=== PATIENT | female | born 1965 | race Caucasian/White ===

== ENCOUNTER → 2016-03-21 | Outpatient (CLI) | payer OTHER ==
[~2016-03-21] MED LIST: HYDR-5688 PO; TERI600S SQ
--- NOTE | 2016-03-21 16:33 | MAMMOGRAPHY REPORT ---
BILATERAL DIGITAL SCREENING MAMMOGRAM TOMOSYNTHESIS WITH CAD: 03/21/2016 CLINICAL HISTORY: Routine screening. Patient has no complaints. TECHNIQUE: Breast tomosynthesis in addition to standard 2D mammography was performed. Current study was also evaluated with a Computer Aided Detection (CAD) system. COMPARISON: Comparison is made to exams dated: 03/18/2015 mammogram, 03/17/2014 mammogram, 3 mammogram, 02/20/2012 mammogram, 02/17/2011 mammogram, and 02/16/2010 mammogram - [facility] [address] BREAST COMPOSITION: The tissue of both breasts is almost entirely fatty. FINDINGS: No suspicious mass, architectural distortion or cluster of microcalcifications is seen. IMPRESSION: ACR BI-RADS CATEGORY 1: NEGATIVE There is no mammographic evidence of malignancy. A 1 year screening mammogram is recommended. The p atient will receive written notification of the results. Approximately 10% of breast cancers are not detected with mammography. A negative mammographic repor t should not delay biopsy if a clinically suggestive mass is present. Amira leary/michelle:03/21/2016 15:59:45 Manager [place]: Kalyani AVILEZ(R)(M), [facility] letter sent: Normal 1/2 BI-RADS Code: ACR BI-RADS Category 1: Negative
== END | disposition home or self-care (01) ==
LOC: C.MAMM 07:13
PROVIDERS: ATTEND Internal Medicine
DX: Z12.31 Encounter for screening mammogram for malignant neoplasm of breast (principal)

== ENCOUNTER → 2016-05-08 | Outpatient (CLI) | payer OTHER ==
[2016-05-08 09:33] LABS: BASO % 0.4 %; BASO ABS # 0.03 K/uL (0-0.2); COMPLETE YES; EOS % 1.6 %; HEMATOCRIT 36.8 % (37-47); IG% 0.1 %; LYMPH % 23.5 %; LYMPH ABS # 1.59 K/uL (1.2-3.4); MEAN CELL VOLUME 86.8 fL (80-100); MEAN CORPUSCULAR HEMOGLOBIN 28.8 pg (25-34); MEAN CORPUSCULAR HGB CONC 33.2 g/dl (32-36); MEAN PLATELET VOLUME 10.1 fL (7.4-10.4); MONO % 3.8 %; NEUT % 70.6 %; PLATELET COUNT 258 K/uL (130-400); RED BLOOD COUNT 4.24 M/uL (4.2-5.4); WHITE BLOOD COUNT 6.77 K/uL (4.8-10.8)
[2016-05-08 10:09] LABS: BLOOD UREA NITROGEN 12 mg/dl (7-18); BUN/CREATININE RATIO 18.3 (10-20); CALCIUM 9.9 mg/dl (8.5-10.1); CARBON DIOXIDE 30 mmol/L (21-32); CHLORIDE 103 mmol/L (98-107); CREATININE 0.65 mg/dl (0.60-1.20); GLUCOSE 89 mg/dl (70-99); POTASSIUM 3.3 mmol/L (3.5-5.1); SODIUM 142 mmol/L (136-145)
== END | disposition home or self-care (01) ==
LOC: C.LAB1850 08:27
PROVIDERS: ATTEND Internal Medicine
DX: D64.9 Anemia, unspecified (principal); E55.9 Vitamin D deficiency, unspecified

== ENCOUNTER → 2016-05-18 | Outpatient (CLI) | payer OTHER ==
[2016-05-18 11:57] LABS: BLOOD UREA NITROGEN 16 mg/dl (7-18); BUN/CREATININE RATIO 25.5 (10-20); CALCIUM 10.5 mg/dl (8.5-10.1); CARBON DIOXIDE 29 mmol/L (21-32); CHLORIDE 104 mmol/L (98-107); CREATININE 0.64 mg/dl (0.60-1.20); GLUCOSE 85 mg/dl (70-99); MAGNESIUM 2.2 mg/dl (1.8-2.4); SODIUM 142 mmol/L (136-145)
== END | disposition home or self-care (01) ==
LOC: C.LAB1850 10:30
PROVIDERS: ATTEND Internal Medicine
DX: E87.6 Hypokalemia (principal)

== ENCOUNTER 2016-10-08 09:16 | Emergency (ER) | payer OTHER ==
[~2016-10-08] VITALS: Ht 165.1 cm; Wt 70.3 kg
[~2016-10-08 09:16] MED LIST changes: -TERI600S SQ
[2016-10-08 09:21] VITALS: TEMP 36.5; Ht 165.1 cm; Wt 70.3 kg
--- NOTE | 2016-10-08 09:38 | EMERGENCY ROOM VISIT NOTE ---
History First contact with patient: 09:25 Chief Complaint: BACK PAIN Stated Complaint: BACK PAIN History of Present Illness The patient is a 51 year old female who presents to the Emergency Room with complaints of low back pain. The patient has a history of T7 fracture in March 2015. She states that there is no significant trauma and it was thought to be caused during exercise. The patient states that she has had pain in the mid and low back for almost 1 week. She rates her discomfort a 7/10. She has seen Dr. Rodriguez in the past and stopped in the office but they could not get her an appointment. They advised her to come to the ER if the pain worsened. She denies any chest pain or trouble breathing. She denies any fevers. She denies any abdominal pain. She denies any loss of bowel or bladder control. She denies any pain in her legs. She denies any numbness, tingling, weakness in the legs. She denies any specific injury. Review of Systems A 10 system review of systems was completed with positives and pertinent negatives listed in the HPI. Past Medical/Surgical History Medical Problems: (1) Compression fracture of thoracic vertebra Family History Blood clots Social History Smoking Status: Never Smoker Marital Status: in relationship Housing Status: lives with significant other Occupation Status: employed Current/Historical Medications Scheduled Teriparatide (Recombinant) (Forteo), 20 MCG SQ DAILY Physical Exam Vital Signs Date Time Temp Pulse Resp B/P (MAP) Pulse Ox O2 Delivery O2 Flow Rate FiO2 10/08/16 10:35 59 18 118/78 100 10/08/16 09:21 36.5 62 18 125/81 100 Room Air Physical Exam VITALS: Vitals are noted on the nurse's note and reviewed by myself. Vital signs stable. GENERAL: This is a 51-year-old female, in no acute distress, nondiaphoretic, well-developed well-nourished. SKIN: The skin was without rashes, erythema, edema, or bruising. There is no tenting of the skin. Capillary reflex less than 2 seconds. HEAD: Normocephalic atraumatic. EARS: The external ears are normal in appearance. EYES: Pupils equal round and reactive to light and accommodation. Conjunctivae without injection, sclerae without icterus. Extraocular movements intact. NOSE: Patent, turbinates without inflammation or discharge. MOUTH: Mucous membranes moist. Tonsils are not enlarged. Pharynx without erythema or exudate. Uvula midline. Airway patent. Tongue does not deviate. NECK: Supple without nuchal rigidity. Cervical spine is nontender. HEART: Regular rate and rhythm without murmurs gallops or rubs. LUNGS: Clear to auscultation bilaterally without wheezes, rales or rhonchi. No retractions or accessory muscle use. ABDOMEN: Positive bowel sounds x 4. Soft, nontender, without masses or organomegaly. MUSCULOSKELETAL: No muscle atrophy, erythema, or edema noted. Full range of motion without joint tenderness in all extremities. There is tenderness to palpation to the lower thoracic vertebrae and the upper lumbar vertebrae. There is tenderness to palpation over the right paraspinous muscles. throughout. NEURO: Patient was alert and oriented to person place and time. Normal sensation to light and sharp touch. Deep tendon reflexes 2+ in the lower extremities bilaterally. No focal neurological deficits. Medical Decision & Procedures ER Provider Diagnostic Interpretation: L-SPINE MIN 4 VIEWS ROUTINE CLINICAL HISTORY: Low back pain. COMPARISON STUDY: No previous studies for comparison. FINDINGS: There is a minor spinal curvature convex to the left. No acute fractures or traumatic subluxations are visualized. No destructive lesions are evident. IMPRESSION: No fractures or subluxations identified. THORACIC SPINE 3 VIEWS ROUTINE CLINICAL HISTORY: Back pain. History of T7 fracture. COMPARISON STUDY: 04/06/2015 FINDINGS: The paraspinal line is not displaced. There is an old T7 compression deformity similar to the preceding study. No acute fractures are visualized. There are no subluxations. IMPRESSION: Old T7 compression deformity. No acute fractures or traumatic subluxations. ED Course The patient was seen and examined. Previous visits were reviewed. The patient does not have any neurologic deficit on exam or by history. The patient has had low and mid back pain. It is nonradiating. The patient has a history of spontaneous T7 fracture and she was quite concerned she could have another fracture. X-rays were obtained as above. The x-rays reveal the old T7 compression fracture but no acute finding. The patient declined pain medication. She was advised to try Motrin 600 mg every 6-8 hours. She should contact orthopedics, Dr. Rodriguez, to schedule a follow-up appointment for further evaluation and management. She should return with any worsening symptoms. Medical Decision DIFFERENTIAL DIAGNOSIS: Lumbar strain, degenerative disc disease, spondylolisthesis, herniated disc, spinal stenosis, osteoporosis, fracture, cauda equina syndrome, neoplasm, infection, inflammatory arthritis, among others.- Medication Reconcilliation Current Medication List: was personally reviewed by me Blood Pressure Screening Patient's blood pressure: Normal blood pressure Blood pressure disposition: Did not require urgent referral Impression Primary Impression: Back pain Departure Information Dispostion Home / Self-Care Condition GOOD Referrals RV. Crespo MD (PCP) Guicho Rodriguez D.Fartun Patient Instructions Back Pain - [facility], My [facility] Additional Instructions Motrin 600 mg every 6-8 hours for pain Try heat intermittently Contact Dr. Rodriguez's office to schedule a follow-up appointment for further evaluation and management Return with any fevers, abdominal pain, urinary symptoms, numbness, tingling, weakness in the lower extremities
--- NOTE | 2016-10-08 10:00 | DIAGNOSTIC IMAGING REPORT ---
THORACIC SPINE 3 VIEWS ROUTINE CLINICAL HISTORY: Back pain. History of T7 fracture. COMPARISON STUDY: 04/06/2015 FINDINGS: The paraspinal line is not displaced. There is an old T7 compression deformity similar to the preceding study. No acute fractures are visualized. There are no subluxations. IMPRESSION: Old T7 compression deformity. No acute fractures or traumatic subluxations. Electronically signed by: Etienne Martinez M.D. 10/08/2016 9:59 AM Dictated Date/Time: 10/08/2016 9:58 AM
--- NOTE | 2016-10-08 10:01 | DIAGNOSTIC IMAGING REPORT ---
L-SPINE MIN 4 VIEWS ROUTINE CLINICAL HISTORY: Low back pain. COMPARISON STUDY: No previous studies for comparison. FINDINGS: There is a minor spinal curvature convex to the left. No acute fractures or traumatic subluxations are visualized. No destructive lesions are evident. IMPRESSION: No fractures or subluxations identified. Electronically signed by: Etienne Martinez M.D. 10/08/2016 10:00 AM Dictated Date/Time: 10/08/2016 9:59 AM
[2016-10-08] MEDS ORDERED: TERI600S SQ (10:16)
[2016-10-08 10:35] VITALS: BP 118/78; PULSE 59; O2SAT 100
== END 2016-10-08 10:35 | disposition home or self-care (01) ==
LOC: C.EDB 09:17
DX: M54.5 Low back pain (principal); Z83.2 Family history of diseases of the blood and blood-forming organs and certain disorders involving the immune mechanism

== ENCOUNTER → 2016-10-19 | Outpatient (CLI) | payer OTHER ==
[~2016-10-19] MED LIST changes: -HYDR-5688 PO; +TERI600S SQ
--- NOTE | 2016-10-19 17:18 | DIAGNOSTIC IMAGING REPORT ---
THORACIC SPINE WITHOUT HISTORY: Pain BACK PAIN TECHNIQUE: Multiplanar multisequence MRI of the thoracic spine was performed without the use of contrast. COMPARISON: None. FINDINGS: Slight wedge deformity superior endplate T6. Signal characteristics indicate this is old. Vertebral body stature is unremarkable throughout. Signal characteristics of the thoracic cord are unremarkable. IMPRESSION: 1. Slight wedge deformity T6 considered old. 2. Study is otherwise normal with no evidence for disc herniation or spinal stenosis. The above report was generated using voice recognition software. It may contain grammatical, syntax or spelling errors. Electronically signed by: Boo Watkins M.D. 10/19/2016 5:17 PM Dictated Date/Time: 10/19/2016 5:15 PM
== END | disposition home or self-care (01) ==
PROVIDERS: ATTEND Orthopaedic Surgery Orthopaedic Surgery of the Spine
DX: M54.6 Pain in thoracic spine (principal); M48.54XA Collapsed vertebra, not elsewhere classified, thoracic region, initial encounter for fracture

== ENCOUNTER → 2016-11-21 | Outpatient (CLI) | payer OTHER | END | disposition home or self-care (01) | LOC: C.LAB1850 10:25 | PROVIDERS: ATTEND Internal Medicine Rheumatology | DX: M54.6 Pain in thoracic spine (principal); E55.9 Vitamin D deficiency, unspecified; M80.00XA Age-related osteoporosis with current pathological fracture, unspecified site, initial encounter for fracture; R63.5 Abnormal weight gain ==

== ENCOUNTER → 2017-05-04 | Outpatient (CLI) | payer OTHER ==
[2017-05-04 09:51] LABS: BLOOD UREA NITROGEN 18 mg/dl (7-18); CALCIUM 10.4 mg/dl (8.5-10.1); CARBON DIOXIDE 29 mmol/L (21-32); CREATININE 0.87 mg/dl (0.60-1.20); GLUCOSE 113 mg/dl (70-99); POTASSIUM 3.6 mmol/L (3.5-5.1); SODIUM 137 mmol/L (136-145)
== END | disposition home or self-care (01) ==
LOC: C.LAB1850 07:53
PROVIDERS: ATTEND Internal Medicine
DX: E83.52 Hypercalcemia (principal)

== ENCOUNTER → 2017-05-04 | Outpatient (CLI) | payer OTHER ==
--- NOTE | 2017-05-04 14:59 | MAMMOGRAPHY REPORT ---
BILATERAL DIGITAL SCREENING MAMMOGRAM TOMOSYNTHESIS WITH CAD: 05/04/2017 CLINICAL HISTORY: Routine screening. Patient has no complaints. TECHNIQUE: Breast tomosynthesis in addition to standard 2D mammography was performed. Current study was also evaluated with a Computer Aided Detection (CAD) system. COMPARISON: Comparison is made to exams dated: 03/21/2016 mammogram, 03/18/2015 mammogram, 03/17/2014 mammogram, 02/20/2013 mammogram, 02/20/2012 mammogram, and 02/17/2011 mammogram - [facility]. BREAST COMPOSITION: The tissue of both breasts is almost entirely fatty. FINDINGS: No suspicious masses, calcifications, or areas of architectural distortion are noted in ei ther breast. There has been no significant interval change compared to prior exams. IMPRESSION: ACR BI-RADS CATEGORY 1: NEGATIVE There is no mammographic evidence of malignancy. A 1 year screening mammogram is recommended. The pa tient will receive written notification of the results. Approximately 10% of breast cancers are not detected with mammography. A negative mammographic report should not delay biopsy if a clinically suggestive mass is present. Soumya Vera M.D. /:05/04/2017 07:47:09 Farmworkers: Kalyani REDMOND)([place]), [facility] letter sent: Normal 1/2 BI-RADS Code: ACR BI-RADS Category 1: Negative
== END | disposition home or self-care (01) ==
LOC: C.MAMM 07:29
PROVIDERS: ATTEND Internal Medicine
DX: Z12.31 Encounter for screening mammogram for malignant neoplasm of breast (principal)

== ENCOUNTER → 2017-05-18 | Outpatient (CLI) | payer OTHER ==
[2017-05-18 09:54] LABS: BLOOD UREA NITROGEN 12 mg/dl (7-18); CALCIUM 9.8 mg/dl (8.5-10.1); CARBON DIOXIDE 31 mmol/L (21-32); CREATININE 0.68 mg/dl (0.60-1.20); GLUCOSE 90 mg/dl (70-99); POTASSIUM 3.5 mmol/L (3.5-5.1); SODIUM 139 mmol/L (136-145)
== END | disposition home or self-care (01) ==
LOC: C.LAB1850 07:07
PROVIDERS: ATTEND Internal Medicine
DX: E83.52 Hypercalcemia (principal)

== ENCOUNTER → 2017-05-31 | Outpatient (CLI) | payer OTHER | END | disposition home or self-care (01) | LOC: C.PAPS 11:40 | PROVIDERS: ATTEND Physician Assistant | DX: Z01.419 Encounter for gynecological examination (general) (routine) without abnormal findings (principal) ==

== ENCOUNTER 2019-12-03 15:06 | Inpatient (IN) ==
[2019-12-03] MEDS ORDERED: SODIUM CHLORIDE 0.9% 1000ML 2,000 ML IV ONE (15:19)
--- NOTE | 2019-12-03 15:25 | Emergency Department Note ---
Impression & Plan PIERRE (acute kidney injury), Abdominal pain, Anemia ED Provider Note NAME: BC LAGUNA AGE: 54 SEX: F : 1965 ARRIVES VIA: Walk-In INFORMANT: Patient ED PROVIDER(S): Karlo Fowler DO CHIEF COMPLAINT: Acute kidney injury HPI: Patient is a 54-year-old female who was referred in by PCP for acute kidney injury. She went to be evaluated as she was having some epigastric abdominal pain. She has been taking NSAIDs on a regular basis for the past 4 to 6 weeks. She notes that she has been eating and drinking less due to the upset stomach. Denies any vomiting. No dysuria urgency or frequency. No other exacerbating or remitting factors. Kidney function trended up to 4 from a baseline of 1. ROS: See above HPI for pertinent positives & negatives. A total of 10 systems reviewed and were otherwise negative. PAST MEDICAL HISTORY:See Below PAST SURGICAL HISTORY:See Below FAMILY HISTORY:See Below SOCIAL HISTORY:See Below HOME MEDICATIONS:See Below ALLERGIES:See Below VITALS:See Below PHYSICAL EXAMINATION: GENERAL: Sitting up in bed, alert, well appearing, well nourished, no distress, non-toxic EYE EXAM: normal conjunctiva. OROPHARYNX: no exudate, no erythema, lips, buccal mucosa, and tongue normal and mucous membranes are moist NECK: supple, no nuchal rigidity, no adenopathy, non-tender LUNGS: Clear to auscultation. Normal chest wall mechanics HEART: no murmurs, S1 normal and S2 normal ABDOMEN: abdomen soft, non-tender, normo-active bowel sounds, no masses, no rebound or guarding. BACK: Back is symmetrical on inspection and there is no deformity, no midline tenderness, no CVA tenderness. SKIN: no rashes and no bruising UPPER EXTREMITIES: upper extremities are grossly normal. LOWER EXTREMITIES: No pitting edema. NEURO EXAM: Normal sensorium, cranial nerves II-XII grossly intact, normal speech, no gross weakness of arms, no gross weakness of legs. MEDICAL DECISION MAKING: Patient is a 54-year-old female referred in by the PCP for acute kidney injury. She had blood work done today which showed a creatinine of 4. Upon presentation IV was established blood work was obtained. She is been taking Motrin on a regular basis. Labs show no significant leukocytosis and a mild anemia 10.6. BMP with mild hypokalemia at 3.3. Chloride slightly elevated at 109. Creatinine significantly elevated at 4.6 from baseline of 1. LFTs bilirubin and lipase is unremarkable. UA was contaminated with multiple epithelial cells. Multiple casts present. Patient was given [address] abdomen pelvis was unremarkable. No hydro-. Patient was updated bedside. Discussed with hospitalist for further evaluation. Triage Nursing notes reviewed. Prior medical records reviewed Vital Signs: reviewed and remarkable for HTN Differential diagnosis: Differential diagnoses includes but is not limited to gastritis, peptic ulcer disease, GERD, gallbladder disease, pancreatitis, small bowel obstruction, acute coronary syndrome, pericarditis, ischemic bowel, irritable bowel disease, irritable bowel syndrome, appendicitis, diverticulitis, malignancy, hernia, urinary tract infection, torsion, /ectopic (if female), perforation, trauma, infectious. ER treatment provided: See below Diagnostics interpreted by me: ECG: none Cardiac Monitoring: An order was placed for continuous cardiac monitoring. The monitor shows a rate of 85 with sinus rhythm. Laboratory studies: As stated above and show below. Imaging studies: CT abdomen pelvis shows no acute pathology Consultation(s): Discussed with Dr. Gilbert Hurley for further evaluation ED COURSE: Procedures: none Critical Care: None Past Med/Surg History Medical History (Updated 12/03/19 @ 19:49 by Karlo Fowler DO) Abdominal pain PIERRE (acute kidney injury) Anemia Nausea Surgical History History of throat surgery Family History Grandmother (Maternal) Myocardial infarction Sister Osteoporosis Aunt Breast cancer Thyroid disorder Mother Hypertension Diabetes Father Prostate cancer Social History Smoking Status: Former smoker Do You Dip or Chew Tobacco: No; Hx Alcohol Use: No Hx Substance Use: No Preferred Language: Czech Communication Ability: Effective Boring Machine Operator Required: No Beliefs That Will Affect Care: None marital status: Current Living Situation: Other Current Living Situation Comment: living with friend current occupational status: employed Feels Safe at Home: Yes Safety Concerns: Feels Safe At This Time Childhood Exposure to Second-Hand Smoke: No Dental Care, Regularly: Yes Physical Activity Frequency: Daily Seatbelt Use: always Sunscreen Use: Yes Allergies Allergies Allergy/AdvReac Type Severity Reaction Status Date / Time Bactrim Allergy Unknown Hives Verified 10/08/16 10:17 Penicillins Allergy Unknown Hives Verified 12/03/19 16:49 shellfish derived Allergy Unknown ANAPHYLAXIS Verified 12/03/19 16:49 Sulfa (Sulfonamide Allergy Unknown Hives Verified 12/03/19 16:53 Antibiotics) sulfamethoxazole Allergy Unknown Hives Verified 12/03/19 16:49 trimethoprim Allergy Unknown Hives Verified 12/03/19 16:52 naproxen [From Aleve] Allergy Verified 12/03/19 16:53 ALL MEATS Allergy Unknown HIVES AND Uncoded 12/03/19 16:52 NEED EPI PEN ONIONS AND GARLIC Allergy Unknown HIVES, Uncoded 12/03/19 16:53 Home Meds Home Medications Medication Instructions Recorded Confirmed clobetasol 1 appln TOP BID PRN 12/03/19 12/03/19 Previous Rx's Medication Instructions Recorded epinephrine 0.3 mg/0.3 mL 0.3 mg IM Q20M PRN #1 ea 08/23/18 injection, auto-injector ibandronate 150 mg tablet 150 mg PO .COMPLEX #14 tab 10/15/19 loratadine 10 mg tablet 10 mg PO DAILY #30 tab 12/03/19 ondansetron HCl 8 mg tablet 8 mg PO DAILY #30 tab 12/03/19 pantoprazole 40 mg tablet,delayed 40 mg PO DAILY #30 tab 12/03/19 release Results & Data (ED) Vital Signs Vital Signs - 24 hr 12/03/19 15:08 12/03/19 15:19 12/03/19 16:09 Temperature 36.7 C Temperature Source Oral Pulse Rate 62 80 Pulse Rate from SpO2 Sensor 82 Respiratory Rate 18 20 Blood Pressure 165/90 H 126/67 Blood Pressure Mean 115 82 Pulse Oximetry 96 99 Oxygen Delivery Method Room Air Room Air Room Air Sepsis Recent Fever Within 48 Hours No Sepsis New/Unexplained Change in Mental Status No Sepsis Action Taken by Nursing No Action Required 12/03/19 16:30 12/03/19 17:00 12/03/19 17:01 Temperature Temperature Source Pulse Rate 74 91 H 94 H Pulse Rate from SpO2 Sensor 74 93 H 94 H Respiratory Rate 20 20 21 Blood Pressure 111/73 128/72 Blood Pressure Mean 92 96 Pulse Oximetry 100 100 100 Oxygen Delivery Method Room Air Sepsis Recent Fever Within 48 Hours Sepsis New/Unexplained Change in Mental Status Sepsis Action Taken by Nursing Laboratory Data Result diagrams: 12/03/19 15:40 12/03/19 15:40 Lab Results 12/03/19 12/03/19 12/03/19 Range/Units 15:40 15:40 15:40 WBC 8.18 (4.8-10.8) K/uL RBC 3.73 L (4.2-5.4) M/uL Hgb 10.6 L (12.0-16.0) g/dL Hct 31.8 L (37-47) % MCV 85.3 (80-100) fL MCH 28.4 (25-34) pg MCHC 33.3 (32-36) g/dL RDW Std Deviation 44.2 (36.4-46.3) fL RDW Coeff of [place] 14.1 (11.5-14.5) % Plt Count 218 (130-400) K/uL MPV 10.0 (7.4-10.4) fL Immature Gran % (Auto) 0.2 % Neut % (Auto) 68.9 % Lymph % (Auto) 23.3 % [place] % (Auto) 5.7 % Eos % (Auto) 1.7 % Baso % (Auto) 0.2 % Neut # (Auto) 5.62 (1.4-6.5) K/uL Lymph # (Auto) 1.91 (1.2-3.4) K/uL [place] # (Auto) 0.47 (0.11-0.59) K/uL Eos # (Auto) 0.14 (0-0.5) K/uL Baso # (Auto) 0.02 (0-0.2) K/uL Immature Gran # (Auto) 0.02 (0.00-0.02) K/uL Sodium 140 (136-145) mmol/L Potassium 3.3 L (3.5-5.1) mmol/L Chloride 109 H (98-107) mmol/L Carbon Dioxide 24 (21-32) mmol/L Anion Gap 7.0 (3-11) BUN 43 H (7-18) mg/dl Creatinine 4.63 H* (0.6-1.2) mg/dl Est Cr Clr Drug Dosing 12.4 ml/min Est GFR ( Amer) 11.5 Est GFR (Non-Af Amer) 9.9 BUN/Creatinine Ratio 9.3 L (10-20) Glucose 123 H (70-99) mg/dl Calcium 9.5 (8.5-10.1) mg/dl Total Bilirubin 0.4 (0.2-1) mg/dl AST 46 H (15-37) U/L ALT 69 (12-78) U/L Alkaline Phosphatase 68 (45-117) U/L Total Protein 8.2 (6.4-8.2) gm/dl Albumin 3.6 (3.4-5.0) gm/dl Globulin 4.6 H (2.5-4.0) gm/dl Albumin/Globulin Ratio 0.8 L (0.9-2) Lipase 199 (73-393) U/L Urine Color Yellow Urine Appearance Turbid A (Clear) Urine pH 5.0 (4.5-7.5) Ur Specific [place] 1.024 (1.000-1.030) Urine Protein 4+ H (Negative) Urine Glucose (UA) 3+ H (Negative) Urine Ketones Trace H (Negative) Urine Blood 1+ H (Negative) Urine Nitrite Negative (Negative) Urine Bilirubin Negative (Negative) Urine Urobilinogen Negative (Negative) Ur Leukocyte Esterase Trace H (Negative) Urine WBC (Auto) >30 H (0-5) /hpf Urine RBC (Auto) 0-4 (0-4) /hpf U Hyaline Cast (Auto) 5-10 H (0-5) /lpf U Epithel Cells (Auto) >30 H (0-5) /lpf Urine Bacteria (Auto) Negative (Negative) Ur Renal Epithelial Cell 0-5 (0-5) /lpf Granular Casts 5-10 H (0) /lpf Administered Medications Lactated Ringer's (Lr) 1,000 mls @ 175 mls/hr IV .Q5H43M MAKENZIE Stop: 01/02/20 17:50 Last Admin: 12/03/19 19:44 Dose: 175 mls/hr Documented by: [id number] Discontinued Medications Sodium Chloride (Nss 1000ml) 2,000 mls @ 999 mls/hr IV .Q2H1M ONE Stop: 12/03/19 17:19 Last Infusion: 12/03/19 17:34 Dose: 0 mls/hr Documented by: [id number] Admin: 12/03/19 15:41 Dose: 999 mls/hr Documented by: [id number] Lactated Ringer's (Lr) 1,000 mls @ 999 mls/hr IV .Q1H1M ONE Stop: 12/03/19 19:40 Last Admin: 12/03/19 18:49 Dose: 999 mls/hr Documented by: [id number] Discharge Plan Visit Data Chief Complaint: Abdominal Pain Stated Complaint: PIERRE,STOMACH PAIN ED Provider: Karlo Fowler Discharge Problem: PIERRE (acute kidney injury), Abdominal pain, Anemia Patient Disposition: Admitted As Inpatient Discharge Instructions Interventions: ED Discharge Assessment Last Done: 12/03/19 17:40 Discharge Problem: Abdominal pain Qualifiers: Abdominal location: unspecified location Qualified Code(s): R10.9 - Unspecified abdominal pain Anemia Qualifiers: Anemia type: unspecified type Qualified Code(s): D64.9 - Anemia, unspecified
[2019-12-03 15:52] LABS: Basophils # (auto) 0.02 K/uL (0-0.2); Basophils % (auto) 0.2 %; Eosinophils # (auto) 0.14 K/uL (0-0.5); Eosinophils % (auto) 1.7 %; Hematocrit (blood only) 31.8 % (37-47); Hemoglobin 10.6 g/dL (12.0-16.0); Immature Granulocytes # (auto) 0.02 K/uL (0.00-0.02); Immature Granulocytes % (auto) 0.2 %; Lymphocytes # (auto) 1.91 K/uL (1.2-3.4); Lymphocytes % (auto) 23.3 %; Mean Corpuscular Hemoglobin 28.4 pg (25-34); Mean Corpuscular Hgb Conc 33.3 g/dL (32-36); Mean Corpuscular Volume 85.3 fL (80-100); Monocytes # (auto) 0.47 K/uL (0.11-0.59); Monocytes % (auto) 5.7 %; Neutrophils # (auto) 5.62 K/uL (1.4-6.5); Neutrophils % (auto) 68.9 %; Platelet Count 218 K/uL (130-400); RDW Coefficient of Variation 14.1 % (11.5-14.5); RDW Standard Deviation 44.2 fL (36.4-46.3); Red Blood Count 3.73 M/uL (4.2-5.4); White Blood Count 8.18 K/uL (4.8-10.8)
[2019-12-03 15:57] LABS: Appearance Urine Turbid (Clear); Bacteria Urine Automated Negative (Negative); Bilirubin Urine Negative (Negative); Blood Urine 1+ (Negative); Color Urine Yellow; Epithelial Cell Urine Auto >30 /lpf (0-5); Glucose Urine UA 3+ (Negative); Ketones Urine Trace (Negative); Leukocyte Esterase Urine Trace (Negative); Nitrite Urine Negative (Negative); Protein Urine 4+ (Negative); RBC Urine Automated 0-4 /hpf (0-4); Specific Gravity Urine 1.024 (1.000-1.030); Urobilinogen Urine Negative (Negative); WBC Urine Automated >30 /hpf (0-5)
--- NOTE | 2019-12-03 16:08 | CT Scan Report ---
ABDOMEN AND PELVIS CT WITHOUT CONTRAST CT DOSE: 469.60 mGycm HISTORY: Acute generalized abdominal pain abd pain PIERRE TECHNIQUE: Multiaxial CT images of the abdomen and pelvis were performed without contrast. A dose lo wering technique was utilized adhering to the principles of ALARA. COMPARISON STUDY: Lumbar spine radiographs 10/08/2016 FINDINGS: There is mild linear subsegmental bibasilar atelectasis. 3 mm calcified granuloma of the inferior seg ment lingula. No pneumatosis or pneumoperitoneum. Imaged inferior cardiac chambers are unremarkable. The spleen, pancreas, adrenal glands and mildly contracted gallbladder are unremarkable. The liver is also within normal limits. Kidneys and ureters are unremarkable. Partial distention of the urinary bladder with mild wall thicke meg. Unremarkable uterus and adnexa. Trace free pelvic fluid. Mild calcified plaque of the abdominal aorta. No adenopathy. No bowel obstruction or bowel wall thickening. Mild fecal retention. Noninflam ed appendix. There is no mesenteric inflammation. Soft tissues are within normal limits. Bones appear intact. No acute fracture or suspicious bone lesion. IMPRESSION: 1. No acute intra-abdominal or intrapelvic abnormality. 2. No bowel obstruction or bowel wall thickening. Normal appendix. 3. No renal or ureteral calculi or obstructive uropathy. ACT 112: Negative or not required by law. The above report was generated using voice recognition software. It may contain grammatical, syntax o r spelling errors. Electronically signed by: Isael Larsen M.D. 12/03/2019 4:07 PM
[2019-12-03 16:13] LABS: Renal Epithelial Cells Urine 0-5 /lpf (0-5)
[2019-12-03 16:28] LABS: Albumin Globulin Ratio 0.8 (0.9-2); Albumin Level 3.6 gm/dl (3.4-5.0); BUN Creatinine Ratio 9.3 (10-20); Bilirubin,Total 0.4 mg/dl (0.2-1); Calcium 9.5 mg/dl (8.5-10.1); Creatinine Clr Calc Pharmacy 12.4 ml/min; Est GFR (African American) 11.5; Est GFR (Non-African American) 9.9; Globulin 4.6 gm/dl (2.5-4.0); Potassium 3.3 mmol/L (3.5-5.1); Total Protein 8.2 gm/dl (6.4-8.2)
[2019-12-03] MEDS ORDERED: ONDANSETRON INJ 2 MG/ML 2 ML VIAL IV PRN (18:13)
--- NOTE | 2019-12-03 18:14 | History & Physical Report ---
Date of Service December 03, 2019 Assessment & Plan (1) PIERRE (acute kidney injury): Suspect AIN secondary to NSAID use (although no rash or fever to suggest this she has an extensive allergy history) - discussed with Dr Doty, no need steroids currently. NSS 2L bolus given in ER will give additional LR bolus now then 175 ml/hr. Urine Protein/Cr ratio random to assess for nephrotic range. Repeat BMP with AM labs. (2) Anemia: Mild normocytic anemia, unclear on chronicity. Monitor. (3) Gastritis: Pantoprazole 40mg PO QAM (new prescription as outpatient). (4) Hypokalemia: Potassium chloride 20 M EQ p.o. now. Repeat BMP with a.m. labs (5) Compression fracture of thoracic vertebra: Acetaminophen PRN. Avoid all NSAIDs. Admission and Anticipated Discharge Date Admission Date: December 03, 2019 History of Present Illness Chief Complaint: Epigastric pain, acute kidney injury Primary Care Provider: Real Pierre MD Jes Gonzalez is a 54 year old female who presents to the ER with epigastric pain and acute kidney injury on outpatient labs. The patient was seen by her PCP today due to her epigastric pain. Labs taken showed creatinine increased from baseline in April 2018 0.73 to 4.65 today. She reports taking ibuprofen 600 mg 3-4 times/day for the last 3 weeks due to compression fracture in her back - she last took this 5 days previously. Developed a compression fracture of T6, T7, T8 after a lifting and twisting injury at the end of September. She also reports poor oral intake even on a good day and with her current epigastric pain she has been drinking much less. Epigastric pain for the past 2 weeks but much worse for the last 2 days. Took Tums 4 days previously but did not significantly change her pain. Hurts seconds after she eats any food. Really unable to drink water at the current time. No prior history of gastric ulcers. She does note increased stress recently as she has from her 1 week ago. She saw her PCP earlier today with basic lab work showing she was in acute renal failure - subsequently referred to the ER for further work-up. Allergies Allergy/AdvReac Type Severity Reaction Status Date / Time garlic Allergy Severe Hives Verified 12/04/19 11:47 onion Allergy Severe Hives Verified 12/04/19 11:46 Bactrim Allergy Unknown Hives Verified 10/08/16 10:17 Penicillins Allergy Unknown Hives Verified 12/03/19 16:49 shellfish derived Allergy Unknown ANAPHYLAXIS Verified 12/03/19 16:49 Sulfa (Sulfonamide Allergy Unknown Hives Verified 12/03/19 16:53 Antibiotics) sulfamethoxazole Allergy Unknown Hives Verified 12/03/19 16:49 trimethoprim Allergy Unknown Hives Verified 12/03/19 16:52 naproxen [From Aleve] Allergy Verified 12/03/19 16:53 ALL MEATS Allergy Unknown HIVES AND Uncoded 12/03/19 16:52 NEED EPI PEN Home Medications Home Medications Medication Instructions Recorded Confirmed Type epinephrine 0.3 mg/0.3 mL 0.3 mg IM Q20M PRN #1 ea 08/23/18 12/03/19 Rx injection, auto-injector ibandronate 150 mg tablet 150 mg PO .COMPLEX #14 tab 10/15/19 12/03/19 Rx clobetasol 1 appln TOP BID PRN 12/03/19 12/03/19 History loratadine 10 mg tablet 10 mg PO DAILY #30 tab 12/03/19 12/03/19 Rx ondansetron HCl 8 mg tablet 8 mg PO DAILY #30 tab 12/03/19 12/03/19 Rx pantoprazole 40 mg tablet,delayed 40 mg PO DAILY #30 tab 12/03/19 12/03/19 Rx release Past Med/Surg History Medical History (Updated 12/05/19 @ 14:20 by KARINA Valencia) Abdominal pain PIERRE (acute kidney injury) Anemia Nausea Surgical History History of throat surgery Family History Grandmother (Maternal) Myocardial infarction Sister Osteoporosis Aunt Breast cancer Thyroid disorder Mother Hypertension Diabetes Father Prostate cancer Social History Smoking Status: Former smoker Do You Dip or Chew Tobacco: No; Hx Alcohol Use: No Hx Substance Use: No Preferred Language: Croatian Communication Ability: Effective Wool Supplier Required: No Beliefs That Will Affect Care: None marital status: Current Living Situation: Other Current Living Situation Comment: living with friend current occupational status: employed Feels Safe at Home: Yes Safety Concerns: Feels Safe At This Time Childhood Exposure to Second-Hand Smoke: No Dental Care, Regularly: Yes Physical Activity Frequency: Daily Seatbelt Use: always Sunscreen Use: Yes Review of Systems Review of Systems: All systems reviewed & are unremarkable except as noted in HPI & below Headache -bilateral frontal and in her neck. Relates this to increased stress recently. No sinus pressure (noted in PCP note). No nasal congestion. Physical Exam Constitutional: well developed and + frail appearing; + not well nourished and no acute distress Eyes: + anicteric sclerae; normal pupil size ENMT: Mouth: + dry oral mucous membranes Neck: trachea midline, no thyromegaly Respiratory: normal respiratory effort, lungs clear to auscultation Cardiovascular: RRR, no murmur, no edema Extremities: normal capillary refill; no calf tenderness and no pedal edema Gastrointestinal (Abdomen): normal bowel sounds, soft, nontender, no hepatosplenomegaly Musculoskeletal: no cyanosis or clubbing, extremities motor strength 5/5 Skin: no rashes, warm and dry (No areas of cellulitis) Neurologic: moves all extremities and awake; no focal motor deficits and not confused Psychiatric: Orientation: alert and oriented x 3 Affect: + anxious affect Genitourinary: no CVA tenderness Results & Data Results & Data ([facility]) Vital Signs (Past 12 Hours) Vital Signs Temp Pulse Pulse Resp BP BP Pulse Ox 12/03/19 17:45 36.9 C 88 18 133/77 100 12/03/19 17:40 74 20 129/74 98 12/03/19 17:01 94 H 21 100 12/03/19 17:00 91 H 20 128/72 100 12/03/19 16:30 74 20 111/73 100 12/03/19 16:09 80 20 126/67 99 12/03/19 15:08 36.7 C 62 18 165/90 H 96 Diagnostic Findings ABDOMEN AND PELVIS CT WITHOUT CONTRAST IMPRESSION: 1. No acute intra-abdominal or intrapelvic abnormality. 2. No bowel obstruction or bowel wall thickening. Normal appendix. 3. No renal or ureteral calculi or obstructive uropathy. Code Status & VTE Plan Code Status Full VTE Prophylaxis Plan VTE Prophylaxis will be ordered: No PG Care Time/CCT Total # of Minutes Spent Total Time Spent with Patient: Total time spent is greater than 50% in coordination of care (as documented) at patient's floor/unit and/or counseling patient: Coding Level of Care Code 37617 Initial Inpt Care Lvl 2 Diagnoses PIERRE (acute kidney injury) N17.9 Anemia D64.9 Gastritis K29.70 Hypokalemia E87.6 Compression fracture of thoracic vertebra S22.000A
[2019-12-03] MEDS ORDERED: ALUMINUM/MAGNESIUM SUSP 30 ML UDC PO PRN (18:25)
[2019-12-03] MEDS ORDERED: LACTATED RINGER'S 1,000 ML IV ONE (18:40)
[2019-12-03] MEDS ORDERED: PANTOprazole 40 MG TAB PO ONE (19:00)
[2019-12-03] MEDS ORDERED: POTASSIUM CHLORIDE 20 MEQ TABCR PO STA (19:39)
[2019-12-03] MEDS: LACTATED RINGER'S 1,000 ML IV SCH (19:44)
[2019-12-03] MEDS: LORazepam 0.5 MG TAB PO PRN (19:57)
[2019-12-04] MEDS: LACTATED RINGER'S 1,000 ML IV SCH ×5 (00:43→23:15)
[2019-12-04] MEDS: CLOBETASOL- ORDER AWAITING ACTION SCH ×4 (00:44→23:16)
[2019-12-04 07:06] LABS: BUN Creatinine Ratio 8.4 (10-20); Calcium 8.7 mg/dl (8.5-10.1); Creatinine Clr Calc Pharmacy 13.7 ml/min; Est GFR (Non-African American) 11.2; Potassium 3.6 mmol/L (3.5-5.1)
[2019-12-04] MEDS: PANTOprazole 40 MG TAB PO SCH (09:32)
--- NOTE | 2019-12-04 10:26 | Nephrology Consultation ---
Date of Consultation December 04, 2019 Assessment & Plan (1) PIERRE (acute kidney injury): Jes was found to have acute kidney injury on routine lab with creatinine 4.7 and prior normal renal function, baseline creatinine 0.8 to 1.0. Urinalysis with high-grade proteinuria, hematuria and pyuria without bacteriuria. No postrenal obstruction. Acute kidney injury most likely hemodynamically mediated with heavy NSAID use as well as poor p.o. intake due to gastritis. With urinalysis showing high-grade proteinuria, hematuria and pyuria, at this point, cannot exclude possibility for underlying glomerular disease or acute interstitial nephritis with NSAID. renal function slightly improved, electrolyte has been acceptable. Has been voiding normally. Blood pressure normal, electrolyte acceptable. -- Had long discussion with patient, explained the current status of her renal function and answered questions. -- Will continue on IV fluid for now, encourage p.o. intake, monitor intake and output, would keep on slightly positive balance -- if renal function does not improve as expected, will consider serological evaluation considering abnormal urinalysis, if renal function continues to improve will repeat the UA -- going forward, she knows to avoid all NSAIDs, take Tylenol or tramadol for pain control -- no other workup at this time, check renal panel in a.m. -- if p.o. intake remains adequate and renal function continues to improve, will consider discontinuing IV fluid tomorrow will follow Thank you for allowing me to participate in your patient's care. It was a pleasure to see Jes (2) Hypokalemia: (3) Anemia: (4) Proteinuria: (5) Asymptomatic microscopic hematuria: History of Present Illness Reason for Consultation: Acute kidney injury and hypokalemia. Attending Physician: Jw Singh DO History of Present Illness Jes Gonzalez is a 54-year-old female otherwise healthy, admitted to the hospital with acute kidney injury. Nephrology consult was requested for further management. Electronic medical records including labs and imaging reviewed in detail during patient's visit. Jes had outpatient labs done as part of evaluation for abdominal pain and found to have PIERRE with cr 4.7 with b/l cr 0.8-1.0. On admission creatinine was 4.6, potassium 3.2. Urinalysis showed 4+ proteinuria, hematuria and pyuria But no bacteriuria. CT A/P w/o contrast showed no postrenal obstruction. She has been taking Ibuprofen 600 mg TID for last 4-6 weeks After she had a work-relate d back injury. Also over last few days she has been having epigastric pain and discomfort for and poor p.o. intake. She was just started on pantoprazole 40 milligram daily 2 days ago for epigastric discomfort for. she reports voiding less as over last few days at home but urine output improved since admission after she was started on IV fluid. No known history of any rheumatological condition or vasculitis. She has osteoporosis and has been on bisphosphonate. otherwise pretty healthy and no history of hypertension, diabetes or coronary artery disease. nonsmoker, does not drink alcohol, works full-time at [employer]. She reports one of her Aunt having end-stage renal disease and being on dialysis was known to have diabetes but no other family history of chronic kidney disease. She continues to have epigastric discomfort for and really anxious regarding AK I but otherwise doing better. blood pressure normal. No shortness of breath, chest pain, lower extremity edema, flank pain, dysuria or gross hematuria. Allergies Allergy/AdvReac Type Severity Reaction Status Date / Time garlic Allergy Severe Hives Verified 12/04/19 11:47 onion Allergy Severe Hives Verified 12/04/19 11:46 Bactrim Allergy Unknown Hives Verified 10/08/16 10:17 Penicillins Allergy Unknown Hives Verified 12/03/19 16:49 shellfish derived Allergy Unknown ANAPHYLAXIS Verified 12/03/19 16:49 Sulfa (Sulfonamide Allergy Unknown Hives Verified 12/03/19 16:53 Antibiotics) sulfamethoxazole Allergy Unknown Hives Verified 12/03/19 16:49 trimethoprim Allergy Unknown Hives Verified 12/03/19 16:52 naproxen [From Aleve] Allergy Verified 12/03/19 16:53 ALL MEATS Allergy Unknown HIVES AND Uncoded 12/03/19 16:52 NEED EPI PEN Home Medications Home Medications Medication Instructions Recorded Confirmed Type epinephrine 0.3 mg/0.3 mL 0.3 mg IM Q20M PRN #1 ea 08/23/18 12/03/19 Rx injection, auto-injector ibandronate 150 mg tablet 150 mg PO .COMPLEX #14 tab 10/15/19 12/03/19 Rx clobetasol 1 appln TOP BID PRN 12/03/19 12/03/19 History loratadine 10 mg tablet 10 mg PO DAILY #30 tab 12/03/19 12/03/19 Rx ondansetron HCl 8 mg tablet 8 mg PO DAILY #30 tab 12/03/19 12/03/19 Rx pantoprazole 40 mg tablet,delayed 40 mg PO DAILY #30 tab 12/03/19 12/03/19 Rx release Patient History Medical History (Updated 12/04/19 @ 11:59 by Paradise Salmon MD) Abdominal pain PIERRE (acute kidney injury) Anemia Nausea Surgical History History of throat surgery Family History Grandmother (Maternal) Myocardial infarction Sister Osteoporosis Aunt Breast cancer Thyroid disorder Mother Hypertension Diabetes Father Prostate cancer Social History Smoking Status: Former smoker Do You Dip or Chew Tobacco: No; Hx Alcohol Use: No Hx Substance Use: No Preferred Language: Maltese Communication Ability: Effective Log Deck Tender Required: No Beliefs That Will Affect Care: None marital status: Current Living Situation: Other Current Living Situation Comment: living with friend current occupational status: employed Feels Safe at Home: Yes Safety Concerns: Feels Safe At This Time Childhood Exposure to Second-Hand Smoke: No Dental Care, Regularly: Yes Physical Activity Frequency: Daily Seatbelt Use: always Sunscreen Use: Yes Review of Systems Review of Systems: All systems reviewed & are unremarkable except as noted in HPI & below Physical Exam Constitutional: WD/WN, vitals as above well developed and well nourished; no acute distress Eyes: PERRL, conjunctivae normal, anicteric sclerae ENMT: external ear and nose normal, oropharynx normal Ears: no hearing impairment Neck: trachea midline Respiratory: normal respiratory effort, lungs clear to auscultation no cough Auscultation: no crackles, no rales and no wheezes Cardiovascular: RRR, no murmur, no edema Gastrointestinal (Abdomen): Inspection/Auscultation: abdomen normal to inspection and normal bowel sounds Percussion/Palpation: + abdomen tender ( Epigastric tenderness.); no guarding and abdomen not rigid Musculoskeletal: Extremities: extremities normal to inspection Gait: normal gait Skin: no rashes, warm and dry Neurologic: moves all extremities and awake Psychiatric: A+Ox3, euthymic affect Results & Data ([facility]) Vital Signs (Past 12 Hours) Vital Signs Temp Pulse Resp BP Pulse Ox 12/04/19 08:37 36.7 C 74 18 114/72 99 12/03/19 23:01 37.1 C 70 14 125/71 98 PG Care Time/CCT Total # of Minutes Spent Total Time Spent with Patient: Total time spent is greater than 50% in coordination of care (as documented) at patient's floor/unit and/or counseling patient: Coding Level of Care Code 30163 Inpt Consult Level 5 Diagnoses PIERRE (acute kidney injury) N17.9 Hypokalemia E87.6 Anemia D64.9 Proteinuria R80.8 Proteinuria type: other Asymptomatic microscopic hematuria R31.21 (1) Proteinuria Proteinuria type: other Qualified Code(s): R80.8 - Other proteinuria
[2019-12-04 10:39] LABS: Creatinine Urine Random 26.6 mg/dl; Protein Creatinine Ratio Urine 3.2 (0-0.2); Total Protein Urine Random 84.6 mg/dl (0-11.9)
--- NOTE | 2019-12-04 12:31 | Hospitalist Progress Note ---
Date of Service December 04, 2019 Assessment & Plan (1) PIERRE (acute kidney injury): Suspect ATN secondary to NSAID. Patient had been taking 600 mg TID for 4-6 weeks due to back injury. She then developed stomach pain which kept her from eating and drinking well and so has had poor po intake for some time Continue IVF Continue to follow BMP Nephrology consulted - will order further workup if kidney function is not resolving (2) Anemia: Mild normocytic anemia, unclear on chronicity. It's possible that the patient may have a gastric ulcer given her symptoms and NSAID use and also that poor po intake could have contributed to the anemia, ho wever, as long as her hgb stays stable I think endoscopy is unnecessary as she has stopped NSAIDs and started protonix and is not having s/s of bleeding at this point (3) Gastritis: Pantoprazole 40mg PO QAM. (4) Hypokalemia: Replaced and resolved (5) Compression fracture of thoracic vertebra: Acetaminophen PRN. Avoid all NSAIDs. (6) DVT prophylaxis: SCDs, ambulation Admission and Anticipated Discharge Date Admission Date: December 03, 2019 Subjective Ms. Gonzalez has some epigastric pain and her back is a bit uncomfortable from the bed but otherwise she has no complaints. She is urinating without issues, no blood in urine or stool, no black tarry stools. ROS Constitutional: no chills, aches, sweats or fever Respiratory: no sob,cough, sputum, or wheezing Cardiac: no chest pain, palpitations, edema, orthopnea or lightheadedness GI: no abdominal pain, nausea, vomiting, diarrhea or constipation : no dysuria or hesitancy Extremities: no joint pain or weakness Skin: no rash All other systems reviewed and negative Physical Exam Physical Exam: General: no distress Eyes: normal inspection, PERLL Respiratory: chest non tender, clear to auscultation, normal breath sounds, no respiratory distress, no accessory muscle use Cardiac: regular rate and rhythm, no rub or gallop, no murmur, no edema, no jvd GI/: active bowel sounds, no abd pain or tenderness, soft, non distended Extremities: normal range of motion, normal strength, non tender Neuro/Psych: alert and oriented x 3, normal mood and affect Skin: normal color, dry Results & Data Results & Data ([facility]) Vital Signs (Past 12 Hours) Vital Signs Temp Pulse Resp BP Pulse Ox 12/04/19 08:37 36.7 C 74 18 114/72 99 PG Care Time/CCT Total # of Minutes Spent Total Time Spent with Patient: Total time spent is greater than 50% in coordination of care (as documented) at patient's floor/unit and/or counseling patient: Coding Level of Care Code 29212 Subseq Hosp Care Lvl 2 Diagnoses PIERRE (acute kidney injury) N17.9 Anemia D64.9 Gastritis K29.70 Hypokalemia E87.6 Compression fracture of thoracic vertebra S22.000A DVT prophylaxis Z29.9
[2019-12-04] MEDS: LORazepam 0.5 MG TAB PO PRN (21:46)
[2019-12-05] MEDS: LACTATED RINGER'S 1,000 ML IV SCH ×2 (05:01→11:02)
[2019-12-05 06:04] LABS: Hematocrit (blood only) 29.5 % (37-47); Hemoglobin 9.5 g/dL (12.0-16.0); Mean Corpuscular Hemoglobin 28.2 pg (25-34); Mean Corpuscular Hgb Conc 32.2 g/dL (32-36); Mean Corpuscular Volume 87.5 fL (80-100); Mean Platelet Volume 10.7 fL (7.4-10.4); Platelet Count 183 K/uL (130-400); RDW Coefficient of Variation 14.7 % (11.5-14.5); RDW Standard Deviation 47.4 fL (36.4-46.3); Red Blood Count 3.37 M/uL (4.2-5.4); White Blood Count 6.03 K/uL (4.8-10.8)
[2019-12-05 06:21] LABS: Albumin Level 2.6 gm/dl (3.4-5.0); BUN Creatinine Ratio 7.3 (10-20); Calcium 8.1 mg/dl (8.5-10.1); Creatinine Clr Calc Pharmacy 14.4 ml/min; Est GFR (African American) 13.9; Phosphorus 2.4 mg/dl (2.5-4.9); Potassium 3.8 mmol/L (3.5-5.1)
[2019-12-05] MEDS: CLOBETASOL- ORDER AWAITING ACTION SCH ×3 (07:40→22:01)
[2019-12-05] MEDS: PANTOprazole 40 MG TAB PO SCH (08:11)
--- NOTE | 2019-12-05 10:02 | Nephrology Progress Note ---
Date of Service December 05, 2019 Assessment & Plan (1) PIERRE (acute kidney injury): Jes was found to have acute kidney injury on routine lab with creatinine 4.7 and prior normal renal function, baseline creatinine 0.8 to 1.0. Urinalysis with high-grade proteinuria, hematuria and pyuria without bacteriuria. No postrenal obstruction. Acute kidney injury most likely hemodynamically mediated with heavy NSAID use as well as poor p.o. intake due to gastritis. With urinalysis showing high-grade proteinuria, hematuria and pyuria, at this point, cannot exclude possibility for underlying glomerular disease or acute interstitial nephritis with NSAID. renal function slightly improved, electrolyte has been acceptable. Has been voiding normally. Blood pressure normal, electrolyte acceptable. -- DC IV fluid, encourage p.o. intake, monitor intake and output, would keep on slightly positive balance -- repeat UA -- if renal function does not improve as expected, will consider serological evaluation considering abnormal urinalysis, if renal function continues to improve and repeat UA better will continue to monitor. -- going forward, she knows to avoid all NSAIDs, take Tylenol or tramadol for pain control -- if renal function continue to improve, may consider DC over the weekend with close out pt lab monitoring and F/U in clinci in 2 weeks. Lab early next week and then weekly will follow (2) Hypokalemia: (3) Anemia: (4) Proteinuria: (5) Asymptomatic microscopic hematuria: Admission and Anticipated Discharge Date Admission Date: December 03, 2019 Subjective Jes was seen and examined this morning. Feeling well, denies any symptoms. Had an episode fo diarrhea after dinner last night but feeling fine since then, no N/V, abdominal pain. PO intake normal. UO >2 L, net + around 2 L. BP acceptable. Renal function improving slowly, electrolyte acceptable. Review of Systems Review of Systems: All systems reviewed & are unremarkable except as noted in HPI & below Physical Exam Constitutional: well developed and well nourished; no acute distress Respiratory: normal respiratory effort, lungs clear to auscultation Cardiovascular: RRR, no murmur, no edema Neurologic: moves all extremities and awake; not confused Psychiatric: A+Ox3, euthymic affect Results & Data ([facility]) Vital Signs (Past 12 Hours) Vital Signs Temp Pulse Resp BP Pulse Ox 12/05/19 07:37 36.8 C 82 16 131/78 98 12/04/19 23:06 37.1 C 75 14 112/72 96 PG Care Time/CCT Total # of Minutes Spent Total Time Spent with Patient: Total time spent is greater than 50% in coordination of care (as documented) at patient's floor/unit and/or counseling patient: Coding Level of Care Code 79947 Subseq Hosp Care Lvl 3 Diagnoses PIERRE (acute kidney injury) N17.9 Hypokalemia E87.6 Anemia D64.9 Proteinuria R80.8 Proteinuria type: other Asymptomatic microscopic hematuria R31.21 (1) Proteinuria Proteinuria type: other Qualified Code(s): R80.8 - Other proteinuria
[2019-12-05 11:18] LABS: Appearance Urine Clear (Clear); Bacteria Urine Automated Negative (Negative); Bilirubin Urine Negative (Negative); Blood Urine Negative (Negative); Cast Urine Automated 0 /lpf (0-5); Color Urine Yellow; Glucose Urine UA 1+ (Negative); Ketones Urine Negative (Negative); Leukocyte Esterase Urine 1+ (Negative); Nitrite Urine Negative (Negative); Protein Urine 2+ (Negative); RBC Urine Automated 0-4 /hpf (0-4); Specific Gravity Urine 1.005 (1.000-1.030); Urobilinogen Urine Negative (Negative)
[2019-12-05 12:37] LABS: Amorphous Sediment Urine Present (None Prsent)
[2019-12-05 12:54] LABS: Creatinine Urine Random 17.2 mg/dl; Protein Creatinine Ratio Urine 3.7 (0-0.2)
--- NOTE | 2019-12-05 14:14 | Hospitalist Progress Note ---
Date of Service December 05, 2019 Assessment & Plan (1) PIERRE (acute kidney injury): Suspect ATN secondary to NSAID. Patient had been taking 600 mg TID for 4-6 weeks due to back injury. She then developed stomach pain which kept her from eating and drinking well and so has had poor po intake for some time Discontinue IVF - patient encouraged to drink plenty of fluid Continue to follow BMP Nephrology consulted - will order further workup if kidney function is not resolving. if renal function continue to improve, may consider DC over the weekend with close out pt lab monitoring and F/U in clinic in 2 weeks. Lab early next week and then weekly Avoid further NSAID use (2) Anemia: Mild normocytic anemia, unclear on chronicity, hgb 9.5 today and is likely somewhat dilutional given large amounts of po and IV fluid given It's possible that the patient may have a gastric ulcer given her symptoms and NSAID use and also that poor po intake could have contributed to the anemia, however, as long as her hgb stays stable I think endoscopy is unnecessary as she has stopped NSAIDs and started protonix and is not having s/s of bleeding at this point (3) Gastritis: Pantoprazole 40mg PO QAM. (4) Hypokalemia: Replaced and resolved (5) Compression fracture of thoracic vertebra: Acetaminophen PRN. Avoid all NSAIDs. (6) DVT prophylaxis: [facility] Admission and Anticipated Discharge Date Admission Date: December 03, 2019 Subjective Ms. May has no complaints. Has been ambulating around he room. No issues with urination ROS Constitutional: no chills, aches, sweats or fever Respiratory: no sob,cough, sputum, or wheezing Cardiac: no chest pain, palpitations, edema, orthopnea or lightheadedness GI: no abdominal pain, nausea, vomiting, diarrhea or constipation : no dysuria or hesitancy Extremities: no joint pain or weakness Skin: no rash All other systems reviewed and negative Physical Exam Physical Exam: General: no distress Eyes: normal inspection, PERLL Respiratory: chest non tender, clear to auscultation, normal breath sounds, no respiratory distress, no accessory muscle use Cardiac: regular rate and rhythm, no rub or gallop, no murmur, no edema, no jvd GI/: active bowel sounds, no abd pain or tenderness, soft, non distended Extremities: normal range of motion, normal strength, non tender Neuro/Psych: alert and oriented x 3, normal mood and affect Skin: normal color, dry Results & Data Results & Data ([facility]) Vital Signs (Past 12 Hours) Vital Signs Temp Pulse Resp BP Pulse Ox 12/05/19 07:37 36.8 C 82 16 131/78 98 PG Care Time/CCT Total # of Minutes Spent Total Time Spent with Patient: Total time spent is greater than 50% in coordination of care (as documented) at patient's floor/unit and/or counseling patient: Coding Level of Care Code 73864 Subseq Hosp Care Lvl 2 Diagnoses PIERRE (acute kidney injury) N17.9 Anemia D64.9 Gastritis K29.70 Hypokalemia E87.6 Compression fracture of thoracic vertebra S22.000A DVT prophylaxis Z29.9
[2019-12-06 06:17] LABS: Albumin Level 2.5 gm/dl (3.4-5.0); BUN Creatinine Ratio 6.7 (10-20); Calcium 7.9 mg/dl (8.5-10.1); Creatinine Clr Calc Pharmacy 14.5 ml/min; Potassium 3.7 mmol/L (3.5-5.1)
[2019-12-06 06:18] LABS: Phosphorus 2.8 mg/dl (2.5-4.9)
[2019-12-06] MEDS: PANTOprazole 40 MG TAB PO SCH (08:12)
[2019-12-06] MEDS: CLOBETASOL- ORDER AWAITING ACTION SCH ×2 (08:12→17:21)
--- NOTE | 2019-12-06 12:55 | Nephrology Progress Note ---
Date of Service December 06, 2019 Assessment & Plan (1) PIERRE (acute kidney injury): Etiology unclear. Few WBC's on microscopy. No casts or RBC's. Clinical presentation consistent with ATN vs. AIN. Creatinine stable. Notable proteinuria to be quantified with 24 hour urine collection. Discussed potential role of biopsy today. Continue monitoring for now. Blood pressure normal. Volume status euvolemic. Electrolytes normal. No indication for FUR REPAIRER at this time. (2) Hypokalemia: (3) Anemia: (4) Proteinuria: 24 hour urine requested today to quantify. Serum albumin has dropped. (5) Asymptomatic microscopic hematuria: Resolved on follow up testing. No evidence of RPGN on labs. Creatinine stable. No additional evaluation necessary at this time. Admission and Anticipated Discharge Date Admission Date: December 03, 2019 Subjective No acute events overnight. Severe anxiety today. Voiding without difficulty. No edema. Breathing comfortably. No fevers or chills. Review of Systems Review of Systems: All systems reviewed & are unremarkable except as noted in HPI & below Physical Exam Constitutional: well developed; no acute distress Eyes: no scleral abnormality and no corneal abnormality ENMT: Mouth: no oral mucosal abnormality and oral mucous membranes not dry Neck: normal visual inspection and trachea midline Respiratory: normal respiratory effort Auscultation: lungs clear to auscultation bilaterally Cardiovascular: Rate/Rhythm: regular rate Heart Sounds: normal S1 and normal S2 Extremities: no edema Musculoskeletal: Extremities: no cyanosis and no clubbing Skin: normal turgor; no lesions Neurologic: Motor/Sensory: no tremor and no asterixis Psychiatric: Orientation: alert and oriented x 3 Results & Data ([facility]) Vital Signs (Past 12 Hours) Vital Signs Temp Pulse Resp BP Pulse Ox 12/06/19 07:13 36.2 C L 73 16 136/76 97 Laboratory Results Laboratory Results - last 24 hr 12/05/19 12/06/19 11:02 05:18 Sodium 145 Potassium 3.7 Chloride 117 H Carbon Dioxide 23 Anion Gap 5.0 BUN 26 H Creatinine 3.95 H Est Cr Clr Drug Dosing 14.5 Est GFR ( Amer) 14.0 Est GFR (Non-Af Amer) 12.0 BUN/Creatinine Ratio 6.7 L Glucose 86 Calcium 7.9 L Phosphorus 2.8 Albumin 2.5 L Ur Random Creatinine 17.2 U Random Total Protein 63.0 H Protein/Creatinin Ratio 3.7 H PG Care Time/CCT Total # of Minutes Spent Total Time Spent with Patient: Total time spent is greater than 50% in c oordination of care (as documented) at patient's floor/unit and/or counseling patient: Coding Level of Care Code 36180 Subseq Hosp Care Lvl 3 Diagnoses PIERRE (acute kidney injury) N17.9 Hypokalemia E87.6 Anemia D64.9 Proteinuria R80.8 Proteinuria type: other Asymptomatic microscopic hematuria R31.21 (1) Proteinuria Proteinuria type: other Qualified Code(s): R80.8 - Other proteinuria
--- NOTE | 2019-12-06 18:31 | Hospitalist Progress Note ---
Date of Service December 06, 2019 Assessment & Plan (1) PIERRE (acute kidney injury): Suspect ATN secondary to NSAID. Patient had been taking 600 mg TID for 4-6 weeks due to back injury. She then developed stomach pain which kept her from eating and drinking well and so has had poor po intake for some time Discontinue IVF - patient encouraged to drink plenty of fluid Continue to follow [facility] Nephrology consulted - 24 hour urine ordered Avoid further NSAID use (2) Anemia: Mild normocytic anemia, unclear on chronicity, hgb 9.5 today and is likely somewhat dilutional given large amounts of po and IV fluid given It's possible that the patient may have a gastric ulcer given her symptoms and NSAID use and also that poor po intake could have contributed to the anemia, however, as long as her hgb stays stable I think endoscopy is unnecessary as she has stopped NSAIDs and started protonix and is not having s/s of bleeding at this point (3) Gastritis: Pantoprazole 40mg PO QAM. (4) Hypokalemia: Replaced and resolved (5) Compression fracture of thoracic vertebra: Acetaminophen PRN. Avoid all NSAIDs. (6) DVT prophylaxis: Ambulating halls, SCDs Admission and Anticipated Discharge Date Admission Date: December 03, 2019 Subjective Very anxious but otherwise feeling well. ROS Constitutional: no chills, aches, sweats or fever Respiratory: no sob,cough, sputum, or wheezing Cardiac: no chest pain, palpitations, edema, orthopnea or lightheadedness GI: no abdominal pain, nausea, vomiting, diarrhea or constipation : no dysuria or hesitancy Extremities: no joint pain or weakness Skin: no rash All other systems reviewed and negative Physical Exam Physical Exam: General: no distress Eyes: normal inspection, PERLL Respiratory: chest non tender, clear to auscultation, normal breath sounds, no respiratory distress, no accessory muscle use Cardiac: regular rate and rhythm, no rub or gallop, no murmur, no edema, no jvd GI/: active bowel sounds, no abd pain or tenderness, soft, non distended Extremities: normal range of motion, normal strength, non tender Neuro/Psych: alert and oriented x 3, normal mood and affect Skin: normal color, dry Results & Data Results & Data ([facility]) Vital Signs (Past 12 Hours) Vital Signs Temp Pulse Resp BP Pulse Ox 12/06/19 15:11 36.8 C 80 16 121/74 99 12/06/19 07:13 36.2 C L 73 16 136/76 97 PG Care Time/CCT Total # of Minutes Spent Total Time Spent with Patient: Total time spent is greater than 50% in coordination of care (as documented) at patient's floor/unit and/or counseling patient: Coding Level of Care Code 96198 Subseq Hosp Care Lvl 2 Diagnoses PIERRE (acute kidney injury) N17.9 Anemia D64.9 Gastritis K29.70 Hypokalemia E87.6 Compression fracture of thoracic vertebra S22.000A DVT prophylaxis Z29.9
[2019-12-07] MEDS: CLOBETASOL- ORDER AWAITING ACTION SCH ×2 (00:08→08:52)
[2019-12-07 05:06] LABS: Basophils # (auto) 0.02 K/uL (0-0.2); Basophils % (auto) 0.3 %; Eosinophils # (auto) 0.17 K/uL (0-0.5); Eosinophils % (auto) 2.5 %; Hematocrit (blood only) 27.7 % (37-47); Hemoglobin 9.2 g/dL (12.0-16.0); Immature Granulocytes # (auto) 0.01 K/uL (0.00-0.02); Immature Granulocytes % (auto) 0.1 %; Lymphocytes # (auto) 1.41 K/uL (1.2-3.4); Lymphocytes % (auto) 20.8 %; Mean Corpuscular Hemoglobin 28.4 pg (25-34); Mean Corpuscular Hgb Conc 33.2 g/dL (32-36); Mean Corpuscular Volume 85.5 fL (80-100); Mean Platelet Volume 9.8 fL (7.4-10.4); Monocytes # (auto) 0.38 K/uL (0.11-0.59); Monocytes % (auto) 5.6 %; Neutrophils % (auto) 70.7 %; Platelet Count 193 K/uL (130-400); RDW Coefficient of Variation 14.4 % (11.5-14.5); RDW Standard Deviation 45.3 fL (36.4-46.3); Red Blood Count 3.24 M/uL (4.2-5.4); White Blood Count 6.79 K/uL (4.8-10.8)
[2019-12-07 05:40] LABS: Albumin Level 2.7 gm/dl (3.4-5.0); BUN Creatinine Ratio 6.6 (10-20); Est GFR (African American) 15.8; Est GFR (Non-African American) 13.6; Potassium 3.7 mmol/L (3.5-5.1)
[2019-12-07 05:41] LABS: Phosphorus 2.7 mg/dl (2.5-4.9)
[2019-12-07] MEDS: PANTOprazole 40 MG TAB PO SCH (08:51)
--- NOTE | 2019-12-07 12:12 | Nephrology Progress Note ---
Date of Service December 07, 2019 Assessment & Plan (1) PIERRE (acute kidney injury): Clinical presentation consistent with ATN vs. AIN. Creatinine slightly improved. Electrolytes acceptable. Non-oliguric. BP normal. Proteinuria to be quantified with 24 hour urine collection to be completed this afternoon. Discharge plan reviewed with patient and hospitalist. Follow up labs Sunday + next week. Follow up with Dr. Salmon in clinic the following week. Appropriate risk factor modification reviewed. (2) Proteinuria: 24 hour urine to be completed today. Outpatient follow up. (3) Asymptomatic microscopic hematuria: Resolved on follow up testing. No evidence of RPGN on labs. Creatinine stable. No additional evaluation necessary at this time. Admission and Anticipated Discharge Date Admission Date: December 03, 2019 Subjective No acute events overnight. Anxiety persists but feeling much better today overall. No urinary complaints. Appetite is good. Review of Systems Review of Systems: All systems reviewed & are unremarkable except as noted in HPI & below Physical Exam Constitutional: well developed; no acute distress Eyes: no scleral abnormality and no corneal abnormality ENMT: Mouth: no oral mucosal abnormality and oral mucous membranes not dry Neck: normal visual inspection and trachea midline Respiratory: normal respiratory effort Auscultation: lungs clear to auscultation bilaterally Cardiovascular: Rate/Rhythm: regular rate Heart Sounds: normal S1 and normal S2 Extremities: no edema Musculoskeletal: Extremities: no cyanosis and no clubbing Skin: normal turgor; no lesions Neurologic: Motor/Sensory: no tremor and no asterixis Psychiatric: Orientation: alert and oriented x 3 Results & Data ([facility]) Vital Signs (Past 12 Hours) Vital Signs Temp Pulse Resp BP Pulse Ox 12/07/19 07:21 36.3 C L 76 18 149/81 H 95 Laboratory Results Laboratory Results - last 24 hr 12/07/19 12/07/19 04:49 04:49 WBC 6.79 RBC 3.24 L Hgb 9.2 L Hct 27.7 L MCV 85.5 MCH 28.4 MCHC 33.2 RDW Std Deviation 45.3 RDW Coeff of [place] 14.4 Plt Count 193 MPV 9.8 Immature Gran % (Auto) 0.1 Neut % (Auto) 70.7 Lymph % (Auto) 20.8 [place] % (Auto) 5.6 Eos % (Auto) 2.5 Baso % (Auto) 0.3 Neut # (Auto) 4.80 Lymph # (Auto) 1.41 [place] # (Auto) 0.38 Eos # (Auto) 0.17 Baso # (Auto) 0.02 Immature Gran # (Auto) 0.01 Sodium 143 Potassium 3.7 Chloride 114 H Carbon Dioxide 25 Anion Gap 4.0 BUN 24 H Creatinine 3.57 H D Est Cr Clr Drug Dosing 16.0 Est GFR ( Amer) 15.8 Est GFR (Non-Af Amer) 13.6 BUN/Creatinine Ratio 6.6 L Glucose 83 Calcium 8.0 L Phosphorus 2.7 Albumin 2.7 L PG Care Time/CCT Total # of Minutes Spent Total Time Spent with Patient: Total time spent is greater than 50% in coordination of care (as documented) at patient's floor/unit and/or counseling patient: Coding Level of Care Code 64624 Subseq Hosp Care Lvl 3 Diagnoses PIERRE (acute kidney injury) N17.9 Proteinuria R80.8 Proteinuria type: other Asymptomatic microscopic hematuria R31.21 (1) Proteinuria Proteinuria type: other Qualified Code(s): R80.8 - Other proteinuria
--- NOTE | 2019-12-07 12:17 | Discharge Summary ---
Date of Service December 07, 2019 Admission HPI Per Admitting Provider Jes Gonzalez is a 54 year old female who presents to the ER with epigastric pain and acute kidney injury on outpatient labs. The patient was seen by her PCP today due to her epigastric pain. Labs taken showed creatinine increased from baseline in April 2018 0.73 to 4.65 today. She reports taking ibuprofen 600 mg 3-4 times/day for the last 3 weeks due to compression fracture in her back - she last took this 5 days previously. Developed a compression fracture of T6, T7, T8 after a lifting and twisting injury at the end of September. She also reports poor oral intake even on a good day and with her current epigastric pain she has been drinking much less. Epigastric pain for the past 2 weeks but much worse for the last 2 days. Took Tums 4 days previously but did not significantly change her pain. Hurts seconds after she eats any food. Really unable to drink water at the current time. No prior history of gastric ulcers. She does note increased stress recently as she has from her 1 week ago. She saw her PCP earlier today with basic lab work showing she was in acute renal failure - subsequently referred to the ER for further work-up. Principal Diagnosis PIERRE Discharge Exam Constitutional WD/WN, vitals as above Respiratory normal respiratory effort, lungs clear to auscultation Cardiovascular RRR, no murmur, no edema Gastrointestinal (Abdomen) normal bowel sounds, soft, nontender, no hepatosplenomegaly Musculoskeletal no cyanosis or clubbing, extremities motor strength 5/5 Skin no rashes, warm and dry Neurologic moves all extremities and awake Psychiatric A+Ox3, euthymic affect Discharge Data Allergies Allergy/AdvReac Type Severity Reaction Status Date / Time garlic Allergy Severe Hives Verified 12/08/19 14:14 onion Allergy Severe Hives Verified 12/08/19 14:14 Bactrim Allergy Unknown Hives Verified 10/08/16 10:17 Penicillins Allergy Unknown Hives Verified 12/08/19 14:14 shellfish derived Allergy Unknown ANAPHYLAXIS Verified 12/08/19 14:14 Sulfa (Sulfonamide Allergy Unknown Hives Verified 12/08/19 14:14 Antibiotics) sulfamethoxazole Allergy Unknown Hives Verified 12/08/19 14:14 trimethoprim Allergy Unknown Hives Verified 12/08/19 14:14 naproxen [From Aleve] Allergy Verified 12/08/19 14:14 ALL MEATS Allergy Unknown HIVES AND Uncoded 12/08/19 14:14 NEED EPI PEN Consultations 12/03/19 16:31 ED Decision to Admit Stat 12/04/19 10:14 Consult Nephrology Routine Ordered Studies 12/03/19 15:27 CT abd pelvis wo con Stat Hospital Course (1) PIERRE (acute kidney injury): Suspect ATN secondary to NSAID. Patient had been taking 600 mg TID for 4-6 weeks due to back injury. She then developed stomach pain which kept her from eating and drinking well and so has had poor po intake for some time Discontinued IVF - patient encouraged to drink plenty of fluid Continue to follow BMP after dc - will have lab work / after discharge Nephrology consulted - 24 hour urine ordered - will follow with nephrology outpatient Avoid further NSAID use Creat 4.6 on admission, 3.5 today (2) Anemia: Mild normocytic anemia, unclear on chronicity, hgb 9.5 today and is likely somewhat dilutional given large amounts of po and IV fluid given It's possible that the patient may have a gastric ulcer given her symptoms and NSAID use and also that poor po intake could have contributed to the anemia, however, as long as her hgb stays stable I think endoscopy is unnecessary as she has stopped NSAIDs and started protonix and is not having s/s of bleeding at this point Hgb 10.9 on admission, now 9.2 likely partially dilutional. Fu with pcp (3) Gastritis: Pantoprazole 40mg PO QAM. (4) Hypokalemia: Replaced and resolved (5) Compression fracture of thoracic vertebra: Acetaminophen PRN. Avoid all NSAIDs. Total Time Total Time Spent Total Time Spent (In Minutes): greater than 30 minutes Discharge Plan Discharge Items Patient Disposition: Home - Self-Care Reason For Visit: ACUTE KIDNEY INJURY Discharge Diagnosis: Acute kidney injury Activity: Resume your previous activity Non-emergency contact: Primary Care Provider Call non-emergency contact if: you have any medication questions and your symptoms worsen Follow-up/Referrals: Real Pierre MD [Primary Care Provider] - 01/09/20 3:20 pm (Follow up one week ) Paradise Salmon MD [Physician] - 12/15/19 2:00 pm (Follow up the week of December 14 ) Diet: Regular Ambulatory Orders: Albumin Level (Routine) Timeframe: 20191209 Location: Determined by Patient Ordered By: Tomeka Prasad Basic Metabolic Panel (Routine) Timeframe: 20191209 Location: Determined by Patient Ordered By: Tomeka Prasad Phosphorus (Routine) Timeframe: 20191209 Location: Determined by Patient Ordered By: Tomeka Prasad Addtl Attending Provider Instructions: (1) PIERRE (acute kidney injury): Avoid using non steroidal anti-inflammatory drugs such as ibuprofen, naproxen or aspirin. If you need over the counter pain relief you can take acetaminophen up to 3,000 mg per day. Drink plenty of water during the day. You will need to have your labs drawn Tuesdays and . Please schedule a follow up with Dr. Salmon in the clinic for the week of December 14 (2) Anemia: Please follow up with your primary care provider. If you develop stools that are dark and tarry or della bleeding please let your doctor know right away. (3) Gastritis: Continue pantoprazole 40mg PO QAM. Pending Studies at Discharge: Yes Studies:: 24 hour urine results Stand-Alone Forms: My [facility] [place], Smoking Cessation Medications and DC Order Prescriptions: Continued epinephrine 0.3 mg/0.3 mL auto-injector 0.3 mg IM Q20M PRN (Reason: anaphylaxis) Qty: 1 RF: 5 ibandronate [Boniva] 150 mg tablet 150 mg PO .COMPLEX Qty: 14 RF: 3 Hold Instructions: PIERRE loratadine [Allergy Relief (loratadine)] 10 mg tablet 10 mg PO DAILY Qty: 30 RF: 0 ondansetron HCl [Zofran] 8 mg tablet 8 mg PO DAILY Qty: 30 RF: 0 pantoprazole [Protonix] 40 mg tablet,delayed release (DR/EC) 40 mg PO DAILY Qty: 30 RF: 2 clobetasol 0.05 % cream 1 appln TOP BID PRN (Reason: Skin Irritation) RF: 0 No Action buspirone 5 mg tablet 5 mg PO BID Qty: 60 RF: 2 Discharge Orders: Discharge Order (Routine); Ordered 12/07/19 Ordered By: Tomeka Prasad Admission Data Admit Date/Time: 12/03/19 17:03 Attending Provider: Jw Singh Admit Provider: Gilbert Hurley Primary Care Provider: Real Pierre V. Other Providers: Gilbert Hurley ; Paradise Salmon Other Interventions: Discharge Summary Assessment (RN) Last Done: 12/07/19 16:47 Supervising Physician Co-Signing Physician Notes I agree with the discharge summary by Chaya RAZO. I have reviewed the chart including labs, imaging and plans for discharge. patient feeling well, making a lot of urine, drinking a lot discussed with Dr. Claros, she is clear for discharge from his perspective PIERRE: likely ATN due to excessive NSAID use and then dehydration, decreased perfusion of kidneys Cr slowly improving to 3.5 today, electrolytes stable, making a lot of urine she will follow up closely with nephrology with lab work this week Coding Level of Care Code D/C Day Management >30 mins Diagnoses PIERRE (acute kidney injury) N17.9 Anemia D64.9 Gastritis K29.70 Hypokalemia E87.6 Compression fracture of thoracic vertebra S22.000A
[2019-12-07 18:19] LABS: Urine Total Protein 27.2 mg/dl
[2019-12-07 18:23] LABS: Total Protein 24 Hour Urine 1142.4 mg/24 Hr (0-149.1)
[2019-12-10 13:26] LABS: Abnormal Protein Band 1 DNR mg/24 h (NONE DETECTED); Abnormal Protein Band 2 DNR mg/24 h (NONE DETECTED); Abnormal Protein Band 3 DNR mg/24 h (NONE DETECTED); Protein, Urine 24 Hour 1218 mg/24 h (<150); Ur Protein/Creatinine Rat mg/g 1526 mg/g creat (< OR = 114); Urine Protein/Creatinine Ratio 1.526 (< OR = 0.114)
== END 2019-12-07 18:11 | disposition home or self-care (01) | DRG 683 ==
LOC: ED 15:06 → 3E 17:03 → SUATTDRO 17:03 → 3E 17:40